=== PATIENT | male | born 1960 | race Caucasian/White ===

== ENCOUNTER 2020-05-04 10:06 | Inpatient (IN) | payer MEDICAID ==
[~2020-05-04] VITALS: Ht 180.3 cm; Wt 86.2 kg
[2020-05-04 11:16] LABS: BASOPHILS % 0.6 % (0.0-2.0); EOSINOPHILS % 2.7 % (0.0-5.0); HEMOGLOBIN. 14.7 g/dL (14.0-18.0); LYMPHOCYTES % 18.6 % (20.0-50.0); MEAN CORPUSCULAR HEMOGLOBIN 28.3 pg (28.0-32.0); MEAN CORPUSCULAR VOLUME 82.6 fL (80.0-94.0); MONOCYTES % 8.8 % (2.0-8.0); NEUTROPHILS % 69.3 % (40.0-76.0); PLATELET 276 x1000/uL (130-400); RED CELL DISTRIBUTION WIDTH 13.6 % (11.6-14.6)
[2020-05-04 11:21] LABS: CHLORIDE 103 mEq/L (98-107)
[2020-05-04 11:24] LABS: PROTHROMBIN TIME 10.1 sec (9.6-11.0)
[2020-05-04 11:48] VITALS: BP 143/91
[2020-05-04] MEDS ORDERED: ACETAMINOPHEN 325MG TABLET PO PRN (13:15)
[2020-05-04] MEDS ORDERED: ONDANSETRON HCL 4MG/2ML INJ IV PRN (13:15)
[2020-05-04] MEDS: MORPHINE SULFATE 4 MG/ML CPJ (NOT FOR IM USE) IV PRN ×2 (14:06→21:45)
[2020-05-04 14:29] VITALS: BP 140/90
[2020-05-04 16:00] VITALS: BP 134/75
[2020-05-04] MEDS: DEXAMETHASONE 4MG/ML 1ML VIAL IV SCH ×2 (17:08→23:55)
[2020-05-04] MEDS: HYDROCODONE/ACETAMINOPHEN 10/325MG TABLET PO PRN (17:11)
[2020-05-04 20:00] VITALS: BP 136/99
[2020-05-04] MEDS ORDERED: DEXT 5%/0.45% NACL 1000ML 1,000 ML IV SCH (20:30)
[2020-05-04] MEDS ORDERED: VENLAFAXINE HCL 100MG TABLET PO SCH (21:00)
[2020-05-05] VITALS (68 sets, daily range): BP systolic 106–157; BP diastolic 24–103
[2020-05-05] MEDS: HYDROCODONE/ACETAMINOPHEN 10/325MG TABLET PO PRN (00:10)
[2020-05-05] MEDS: MORPHINE SULFATE 4 MG/ML CPJ (NOT FOR IM USE) IV PRN ×2 (03:41→10:02)
[2020-05-05] MEDS: DEXAMETHASONE 4MG/ML 1ML VIAL IV SCH ×3 (05:38→16:46)
[2020-05-05] MEDS ORDERED: LIDOCAINE HCL/EPINEPHRINE 1%-EPI 1:100,000 20 ML VIAL ONE (05:47)
[2020-05-05] MEDS ORDERED: BACITRACIN 50,000 UNITS/VIAL ONE (05:47)
[2020-05-05] MEDS ORDERED: THROMBIN (BOVINE) 5000 UNITS/VIAL TOP ONE (05:47)
[2020-05-05 06:58] LABS: CHLORIDE 103 mEq/L (98-107)
[2020-05-05 07:04] LABS: BASOPHILS % 0.1 % (0.0-2.0); EOSINOPHILS % 0.1 % (0.0-5.0); HEMATOCRIT. 43.7 % (42.0-52.0); HEMOGLOBIN. 14.9 g/dL (14.0-18.0); LYMPHOCYTES % 10.4 % (20.0-50.0); MEAN CORPUSCULAR HEMOGLOBIN 28.2 pg (28.0-32.0); MEAN CORPUSCULAR VOLUME 82.9 fL (80.0-94.0); MEAN PLATELET VOLUME 7.7 fl (7.4-10.4); MONOCYTES % 1.8 % (2.0-8.0); NEUTROPHILS % 87.6 % (40.0-76.0); PLATELET 290 x1000/uL (130-400); RED BLOOD CELL COUNT 5.27 mill/uL (4.7-6.1); RED CELL DISTRIBUTION WIDTH 13.9 % (11.6-14.6)
[2020-05-05] MEDS ORDERED: NEOSTIGMINE METHYLSULFATE 1MG/ML 10 ML VIAL ONE (07:18)
[2020-05-05] MEDS ORDERED: ROCURONIUM BROMIDE 10MG/ML VIAL 5ML IV ONE ×2 (07:18→07:21)
[2020-05-05] MEDS ORDERED: FENTANYL CITRATE/PF 50MCG/ML 2ML VIAL ONE ×3 (07:18→08:20)
[2020-05-05] MEDS ORDERED: LIDOCAINE HCL/PF 1% 10 MG/ML 5ML VIAL ONE (07:19)
[2020-05-05] MEDS ORDERED: SODIUM CHLORIDE 0.9% 10ML VIAL ONE (07:19)
[2020-05-05] MEDS ORDERED: METOCLOPRAMIDE HCL 10MG/2ML VIAL ONE (07:19)
[2020-05-05] MEDS ORDERED: PHENYLEPHRINE HCL 10 MG/ML 1ML (IV VIAL) IV ONE (07:19)
[2020-05-05] MEDS ORDERED: CEFAZOLIN SODIUM 1000MG/VIAL ONE (07:19)
[2020-05-05] MEDS ORDERED: PROPOFOL 200MG/20ML VIAL IV ONE ×2 (07:19→08:16)
[2020-05-05] MEDS ORDERED: DEXAMETHASONE 4MG/ML 1ML VIAL ONE (07:19)
[2020-05-05] MEDS ORDERED: ONDANSETRON HCL 4MG/2ML INJ ONE (07:19)
[2020-05-05] MEDS ORDERED: EPHEDRINE SULFATE 50MG/ML VIAL ONE (07:19)
[2020-05-05] MEDS ORDERED: SUCCINYLCHOLINE CHLORIDE 200MG/10ML IV ONE (07:19)
[2020-05-05] MEDS ORDERED: MIDAZOLAM HCL 2 MG/2 ML VIAL ONE (07:19)
[2020-05-05] MEDS ORDERED: GLYCOPYRROLATE 0.2 MG/ML 2ML VIAL ONE (07:19)
[2020-05-05] MEDS ORDERED: LABETALOL HCL 5MG/ML VIAL 20ML IV ONE (08:25)
[2020-05-05] MEDS ORDERED: ESMOLOL HCL 10MG/ML 10ML VIAL IV ONE (08:25)
[2020-05-05] MEDS ORDERED: HYDRALAZINE 20MG/ML VIAL ONE (09:39)
[2020-05-05] MEDS ORDERED: HYDROMORPHONE PCA 10MG/50ML IV PRN (10:00)
[2020-05-05] MEDS ORDERED: DIPHENHYDRAMINE INJ IV PRN (10:00)
[2020-05-05] MEDS ORDERED: NALOXONE INJ IV PRN (10:00)
[2020-05-05] MEDS ORDERED: ONDANSETRON INJ IV PRN (10:00)
[2020-05-05] MEDS: DEXT 5%/LACTATED RINGERS 1,000 ML IV SCH ×2 (10:29→20:14)
[2020-05-05] MEDS: NICARDIPINE 100 MG in SODIUM CHLORIDE 0.9% 60 ML IV PRN (11:33)
[2020-05-05] MEDS ORDERED: CEFAZOLIN SODIUM 1000MG/VIAL IV SCH (14:00)
[2020-05-05] MEDS: CEFAZOLIN 1000MG PREMIX 50 ML IV SCH ×2 (14:39→21:32)
[2020-05-06] VITALS (77 sets, daily range): BP systolic 81–166; BP diastolic 30–124
[2020-05-06] MEDS: DEXAMETHASONE 4MG/ML 1ML VIAL IV SCH ×4 (00:12→17:08)
[2020-05-06] MEDS: NICARDIPINE 100 MG in SODIUM CHLORIDE 0.9% 60 ML IV PRN (01:32)
[2020-05-06] MEDS: CEFAZOLIN 1000MG PREMIX 50 ML IV SCH (06:07)
[2020-05-06] MEDS: DEXT 5%/LACTATED RINGERS 1,000 ML IV SCH (06:07)
[2020-05-06] MEDS ORDERED: HYDROCODONE/ACETAMINOPHEN 10/325MG TABLET PO PRN (10:15)
[2020-05-06] MEDS: HYDROCODONE/ACETAMINOPHEN 10/325MG TABLET PO PRN (12:01)
[2020-05-06] MEDS: MORPHINE SULFATE 4 MG/ML CPJ (NOT FOR IM USE) IV PRN ×2 (17:09→20:47)
[2020-05-06] MEDS ORDERED: CLONIDINE 0.1MG TABLET PO PRN (18:45)
[2020-05-06] MEDS: AMLODIPINE 10MG TABLET PO SCH (19:01)
[2020-05-07] VITALS (7 sets, daily range): BP systolic 110–144; BP diastolic 72–92
[2020-05-07] MEDS: MORPHINE SULFATE 4 MG/ML CPJ (NOT FOR IM USE) IV PRN ×4 (04:29→18:23)
[2020-05-07] MEDS: VENLAFAXINE HCL 37.5MG SR CAPSULE 24HR PO SCH (09:04)
[2020-05-07] MEDS: AMLODIPINE 10MG TABLET PO SCH (09:04)
[2020-05-08] VITALS: BP 129/84
[2020-05-08] MEDS: MORPHINE SULFATE 4 MG/ML CPJ (NOT FOR IM USE) IV PRN ×3 (01:22→11:31)
[2020-05-08 04:00] VITALS: BP 127/86
[2020-05-08 07:08] LABS: BASOPHILS % 0.1 % (0.0-2.0); HEMATOCRIT. 43.7 % (42.0-52.0); HEMOGLOBIN. 14.9 g/dL (14.0-18.0); LYMPHOCYTES % 16.8 % (20.0-50.0); MEAN CORPUSCULAR HEMOGLOBIN 28.1 pg (28.0-32.0); MEAN CORPUSCULAR VOLUME 82.5 fL (80.0-94.0); MEAN PLATELET VOLUME 7.9 fl (7.4-10.4); MONOCYTES % 8.8 % (2.0-8.0); NEUTROPHILS % 74.3 % (40.0-76.0); PLATELET 298 x1000/uL (130-400); RED CELL DISTRIBUTION WIDTH 13.8 % (11.6-14.6)
[2020-05-08 07:28] LABS: CHLORIDE 101 mEq/L (98-107)
[2020-05-08 08:00] VITALS: BP 143/91
[2020-05-08] MEDS: AMLODIPINE 10MG TABLET PO SCH (08:42)
[2020-05-08] MEDS: VENLAFAXINE HCL 37.5MG SR CAPSULE 24HR PO SCH (08:42)
[2020-05-08] MEDS ORDERED: VENL37.55 PO (09:17)
[2020-05-08] MEDS ORDERED: AMLO10TA80 PO (09:17)
[2020-05-08 10:46] VITALS: BP 143/91
[2020-05-08 12:00] VITALS: BP 130/89
== END 2020-05-08 15:15 | disposition home or self-care (01) | DRG 321 ==
LOC: ER 10:06 → EDBEDREQ 11:53 → 6EST 11:56 → ENRESERV 11:59 → EDBEDREQ 12:00 → MICUNO 05-05 09:48 → 5WST 05-06 21:30
PROVIDERS: ADMIT Internal Medicine; ATTEND Internal Medicine
PROC: 0RG10A0 Fusion of Cervical Vertebral Joint with Interbody Fusion Device, Anterior Approach, Anterior Column, Open Approach (ICD-10-PCS; principal; 2020-05-05)
DX: M48.02 Spinal stenosis, cervical region (principal); M47.12 Other spondylosis with myelopathy, cervical region; G82.50 Quadriplegia, unspecified; I10 Essential (primary) hypertension; G47.00 Insomnia, unspecified; F32.9 Major depressive disorder, single episode, unspecified; E87.1 Hypo-osmolality and hyponatremia; G89.29 Other chronic pain; M50.00 Cervical disc disorder with myelopathy, unspecified cervical region; M75.101 Unspecified rotator cuff tear or rupture of right shoulder, not specified as traumatic; Z20.828 Contact with and (suspected) exposure to other viral communicable diseases; M47.22 Other spondylosis with radiculopathy, cervical region; Z98.1 Arthrodesis status; Z79.899 Other long term (current) drug therapy
CPT/HCPCS: 36415; 71045; 72040; 72141; 76000; 80048; 80053; 85025; 86850; 86900; 88304; 88311; 93005; 93306; 95940; 97116; 97162; 99285; C1713; J0330; J0360; J0690; J1100; J2250; J2270; J2370; J2405; J2704; J2710; J2765; J3010; J3490; J7050; J7121; L0172; U0003-CS